=== PATIENT | female | born 1980 ===

== ENCOUNTER 2017-10-25 12:12 | Inpatient (IN) | payer OTHER ==
[~2017-10-25] VITALS: Ht 157.5 cm; Wt 91.6 kg
[~2017-10-25 12:12] MED LIST: CODE1TAB37 PO; KETO10TA2 PO; TYLENOL-CODEINE1 TAB PO
[2017-10-27] MEDS ORDERED: ZANTAC300 MG PO (15:21)
[2017-10-27] MEDS ORDERED: ULTRACET PO (15:21)
[2017-10-27] MEDS ORDERED: AMOX1TAB5 PO (15:21)
== END 2017-10-27 18:07 | disposition home or self-care (01) | DRG 343 ==
LOC: ER 12:12 → SURH 20:06 → SEC-K 20:06 → SURH 23:58
PROVIDERS: Surgery
PROC: BW21Y0Z Computerized Tomography (CT Scan) of Abdomen and Pelvis using Other Contrast, Unenhanced and Enhanced (ICD-10-PCS; 2017-10-25)
PROC: 0DTJ0ZZ Resection of Appendix, Open Approach (ICD-10-PCS; principal; 2017-10-25 21:00)
DX: K35.89 Other acute appendicitis (principal)